=== PATIENT | female | born 1985 | race Caucasian/White ===

== ENCOUNTER 2017-08-17 14:32 | Emergency (ER) | payer OTHER ==
[~2017-08-17] VITALS: Ht 165.1 cm; Wt 77.1 kg
[2017-08-17 16:04] VITALS: BP 118/70
== END 2017-08-17 16:07 | disposition home or self-care (01) ==
LOC: M.ERS 14:32
DX: M79.671 Pain in right foot (principal); M25.571 Pain in right ankle and joints of right foot; Z88.0 Allergy status to penicillin

== ENCOUNTER 2017-09-15 14:18 | Emergency (ER) | payer OTHER ==
[~2017-09-15] VITALS: Ht 167.6 cm; Wt 75.3 kg
[2017-09-15 14:41] LABS: URINE BLOOD TRACE (Negative); URINE CLARITY SL CLOUDY; URINE COLOR ORANGE; URINE LEUKOCYTES-REFLEX 1+ (Negative); URINE SPECIFIC GRAVITY 1.025 (1.005-1.030); URINE UROBILINOGEN >= 8.0 E.U./dl (0.2-1.0)
[2017-09-15 14:42] LABS: URINE NITRITE-REFLEX POSITIVE (Negative)
[2017-09-15 14:43] LABS: ICTOTEST (BILI CONFIRMATORY) Negative (Negative)
[2017-09-15 14:44] LABS: SSA (PROTEIN CONFIRMATORY) QNS mg/dL (Negative)
[2017-09-15 14:45] LABS: ACETEST (KETONE CONFIRMATORY) Negative (Negative); URINE REDUCING SUBSTANCE NEGATIVE (Negative)
[2017-09-15 14:46] LABS: CASTS None Seen /LPF (None Seen); CRYSTALS None Seen /LPF (None Seen); SQUAMOUS 0-3 Few /LPF (0-3); URINE RBC 0-2 Rare /HPF (0-2); URINE WBC-REFLEX 6-15 Few /HPF (0-5)
[2017-09-15] MEDS ORDERED: PYRIDIUM100 M1 PO (14:57)
[2017-09-15] MEDS ORDERED: BACTRIM DS TAB1 EACH PO (14:57)
[2017-09-15 15:12] VITALS: BP 109/63
== END 2017-09-15 15:15 | disposition home or self-care (01) ==
LOC: M.ERS 14:18
PROVIDERS: Physician Assistant
DX: N39.0 Urinary tract infection, site not specified (principal); Z87.440 Personal history of urinary (tract) infections; Z88.0 Allergy status to penicillin